=== PATIENT | male | born 1970 | race Caucasian/White ===

== ENCOUNTER 2016-11-23 10:25 | Emergency (ER) | payer MEDICAID, OTHER ==
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
[2016-11-23 13:00] VITALS: BP 122/74; PULSE 74; RESP 16; TEMP 97.9; O2SAT 98
== END 2016-11-23 13:00 | disposition home or self-care (01) ==
DX: M54.5 Low back pain (principal)